=== PATIENT | female | born 1960 | race Caucasian/White ===

== ENCOUNTER 2022-08-31 09:07 | Emergency (ER) | payer OTHER, SELFPAY ==
[2022-08-31] MEDS ORDERED: Ibuprofen 800 MG TAB ONE (10:32)
== END 2022-08-31 10:40 | disposition home or self-care (01) ==
LOC: MADERS 09:07
DX: S52.571A Other intraarticular fracture of lower end of right radius, initial encounter for closed fracture (principal); S82.042A Displaced comminuted fracture of left patella, initial encounter for closed fracture; W01.0XXA Fall on same level from slipping, tripping and stumbling without subsequent striking against object, initial encounter; F17.210 Nicotine dependence, cigarettes, uncomplicated
CPT/HCPCS: 25600; 71045